=== PATIENT | female | born 2000 | race Caucasian/White ===

== ENCOUNTER 2023-03-10 07:15 | Inpatient (IN) | payer BC, OTHER, SELFPAY ==
[2023-03-10] VITALS (52 sets, daily range): BP systolic 109–148; BP diastolic 56–86; PULSE 74–123; RESP 16–20; TEMP 36.7–36.9; O2SAT 93–100; BMI 40.5
[2023-03-10 08:53] LABS: Basophils Absolute Auto 0.03 K/uL (0.00-0.30); Basophils Percent Auto 0.3 % (0.0-3.0); Eosinophils Percent Auto 2.2 % (0.0-7.0); Hemoglobin* 10.1 gm/dL (12.0-16.0); Immature Granulocytes Abs Auto 0.05 K/uL (0.00-0.30); Immature Granulocytes Pct Auto 0.6 %; Lymphocytes Percent Auto 18.9 % (20-44); Mean Corpuscular HGB Conc 33 gm/dL (32-36); Mean Corpuscular Hemoglobin 27 pg (26-34); Mean Corpuscular Volume 83 fL (80-100); Monocytes Percent Auto 8.2 % (0.0-11.0); Neutrophils Absolute Auto 6.31 K/uL (1.7-7.0); Neutrophils Percent Auto 69.8 % (42.0-72.0); Platelet Count* 279 K/uL (140-440); RDW Coefficient of Variation % 13.1 % (11.5-15.5); Red Blood Count 3.73 m/uL (4.00-5.20); White Blood Count* 9.04 K/uL (4.50-11.00)
[2023-03-10 08:55] LABS: Slide Review Reflex No
[2023-03-10] MEDS: miSOPROStoL 25 MCG/0.25 TABLET PO ×5 (09:22→19:03)
--- NOTE | 2023-03-10 18:02 | P.OBHP_ITS ---
OB - H&P: HPI Labor/Induction History of Present Illness Time Seen by Provider: 18:02 Date Seen: 03/10/23 Chief Complaint: The patient is a 22 year old 1 para 0 at 41+0 weeks gestation by 9 wk US, who presents with with regular contractions. Chief complaint: maternity : 1 Para: 0 Narrative: Deneen Hill is a 22 year old female at 41+0 weeks by 9 wk US who presents with regular contractions. Scheduled for IOL this evening for post- dates, but started kayy overnight, and presented to L&D at 0700 and was admitted in early labor. Membranes intact. Otherwise feeling well. Cervix found to be 1.5/50/-2. Oral cytotec initiated for cervical ripening. Now s/p 4 doses. Contractions more regular, more intense. Breathing through. Nitrous oxide initiated about 30 minutes prior. Patient received majority of care at [facility], transferred care to [facility] at 40 weeks. History of Present Dating criteria: based on 1st trimester US only care: good care Ultrasounds: normal 1st trimester US, normal mid trimester US and other (Growth US at 31 weeks showed EFW 23rd percentile) Narrative: Pre- BMI 30, otherwise uncomplicated. Labs Blood type: O (+) positive Rubella: immune RPR/VDLR: nonreactive GBS status: negative HBsAG: negative Review of Systems Status of ROS: Reports: 10 or more systems reviewed and unremarkable except as noted in History and below Meds Home Medications and Allergies Home Medications Medication Instructions Recorded Confirmed Type ascorbic acid (vitamin C) 250 mg 250 mg PO Q1D 03/10/23 03/10/23 History tablet ferrous sulfate 325 mg (65 mg 325 mg PO Q1D 03/10/23 03/10/23 History iron) tablet (FeroSul) vit no.133-ferrous tab PO DAILY 03/10/23 History fumarate 28 mg-folic acid 800 mcg tablet () Allergies Allergy/AdvReac Type Severity Reaction Status Date / Time amoxicillin [From Augmentin] Allergy Intermediate Hives Verified 03/10/23 07:44 clavulanic acid Allergy Intermediate Hives Verified 03/10/23 07:44 [From Augmentin] Latex, Natural Rubber Allergy Mild Rash Verified 03/10/23 07:44 OB - H&P: Exam Physical Exam: Vital signs: Temp Pulse Resp BP Pulse Ox 98.5 F 80 18 118/64 98 03/10/23 16:11 03/10/23 16:11 03/10/23 16:11 03/10/23 16:11 03/10/23 07:29 Narrative: General appearance: Well-appearing adult female. Alert, oriented and appropriate. Sitting up in hospital bed. Breathing through contractions. HEENT: EOMI, no conjunctival injection or discharge. MMM. Neck: Supple. CV: RRR, no rubs, murmurs or extra heart sounds. Pulm: CTAB, no wheezes, rales or rhonchi. Abdomen: Gravid. MSK: Moving all extremities. Ext: Warm and well-perfused. No LE edema. Skin: No rashes appreciated over exposed skin. Neuro: Grossly normal strength and sensation. No focal deficits. Psych: Normal affect. Detailed Labor and Delivery Exam: Patient Gravid: Yes Dilation (cm): 2 Effacement (%): 50 Cervix position: mid Consistency: soft Contraction frequency (min): 3 Fetus (Single): Station: -2 Amniotic Membrane Status: intact Heart Rate Baseline: 145 Monitor Accelerations: Present Monitor Decelerations: None Care Home Variability: Moderate (6-25) OB - Results Labs Labs: Short CBC 03/10/23 Range/Units 08:34 WBC 9.04 (4.50-11.00) K/uL Hgb 10.1 L (12.0-16.0) gm/dL Hct 31.0 L (33.0-51.0) % Plt Count 279 (140-440) K/uL OB - Problem Based A/P Additional Plan (1) Term : Status: Acute Plan: - Continue oral cytotec for total of 6 doses. Transition to pitocin pending labor progress and ctx pattern - GBS negative - tracing category I - Epidural upon request - Anticipate vaginal delivery
[2023-03-10] MEDS: LACTATED RINGERS 1000 ML 1,000 ML 1200 ML IV (20:03)
[2023-03-10] MEDS: ROPIVACAINE 0.2% 100 ml 100 ML 12 MG EPIDURAL (20:35)
--- NOTE | 2023-03-10 20:43 | PM.ANBPRC ---
[facility] Surgical History (Updated 03/10/23 @ 18:18 by Lacy Gomez MD) History of tonsillectomy and adenoidectomy ?Z90.89 - Acquired absence of other organs (ICD-10) Social History What is your current living situation?: I presently have a place to live Problems where you live: no known problems In the past 12 months, utilities in danger of being shut off: no In the past 12 mos, have been you worried that your food would run out before you had money to buy more?: never true In the past 12 mos, the food you bought just didn't last and you didn't have money to buy more?: never true Smoking Status: Never smoker How often does anyone, including family, friends and others, physically hurt you: never How often does anyone, including family, friends and others, insult or talk down to you: never How often does anyone, including family, friends and others, threaten you with harm: never How often does anyone, including family, friends and others, scream or curse at you: never Meds Home Medications and Allergies Home Medications Medication Instructions Recorded Confirmed Type ascorbic acid (vitamin C) 250 mg 250 mg PO Q1D 03/10/23 03/10/23 History tablet ferrous sulfate 325 mg (65 mg 325 mg PO Q1D 03/10/23 03/10/23 History iron) tablet (FeroSul) vit no.133-ferrous 1 tab PO DAILY 03/10/23 03/10/23 History fumarate 28 mg-folic acid 800 mcg tablet () Allergies Allergy/AdvReac Type Severity Reaction Status Date / Time amoxicillin [From Augmentin] Allergy Intermediate Hives Verified 03/10/23 07:44 clavulanic acid Allergy Intermediate Hives Verified 03/10/23 07:44 [From Augmentin] Latex, Natural Rubber Allergy Mild Rash Verified 03/10/23 07:44 Results Labs Labs: Laboratory Results - last 24 hr 03/10/23 03/10/23 08:16 08:34 WBC 9.04 RBC 3.73 L Hgb 10.1 L Hct 31.0 L MCV 83 MCH 27 MCHC 33 RDW Coeff of Christine 13.1 Plt Count 279 Neut % (Auto) 69.8 Lymph % (Auto) 18.9 L Porter % (Auto) 8.2 Eos % (Auto) 2.2 Baso % (Auto) 0.3 Neut # (Auto) 6.31 Lymph # (Auto) 1.70 Porter # (Auto) 0.70 Eos # (Auto) 0.20 Baso # (Auto) 0.03 Abs Immat Gran (auto) 0.05 Imm/Tot Granulo (auto) 0.6 Blood Type O Positive Antibody Screen NEGATIVE Vital Signs Vital Signs: Last Vital Signs Temp 98.5 F 03/10/23 19:29 Pulse 96 03/10/23 20:42 Resp 20 03/10/23 19:29 BP 147/65 H 03/10/23 20:42 Pulse Ox 100 03/10/23 20:38 Weight: 113.942 kg Height: 167.64 cm Anesthesia Procedures Epidural Insertion Patient Location: OB Start Time: 20:00 Stop Time: 20:55 Start Date: 03/10/23 Stop Date: 03/10/23 Reason for Block: procedure for pain Patient Position: sitting Performed By: Charles Mckeon Preanesthetic Checklist: IV checked, risks and benefits discussed, surgical consent, monitors and equipment checked, pre-op evaluation, timeout performed and anesthesia consent Prep: chlorhexidine gluconate Monitoring: blood pressure monitoring, continuous pulse oximetry and heart rate Approach: midline Vertebral Space: lumbar (1-5) Epidural Technique: HALIE saline Needle Type: Tuohy needle Injection Technique: continuous catheter Needle gauge: 17 Needle Length (cm): 10 cm Needle Insertion Depth (cm): 8 Catheter Gauge: 19 Catheter Type: multi-orifice Catheter at skin depth (cm): 14 Test Dose Result: negative and lidocaine 1.5% with epinephrine 1 to 200,000
[2023-03-10] MEDS: LACTATED RINGERS 1000 ML 1,000 ML 125 ML IV (21:05)
[2023-03-11] VITALS (45 sets, daily range): BP systolic 105–153; BP diastolic 55–96; PULSE 76–137; RESP 16–18; TEMP 36.7–37.2; O2SAT 100
[2023-03-11] MEDS: ROPIVACAINE 0.2% 100 ml 100 ML 12 MG EPIDURAL ×2 (03:18→09:49)
[2023-03-11] MEDS: LACTATED RINGERS 1000 ML 1,000 ML 125 ML IV (05:20)
--- NOTE | 2023-03-11 07:05 | P.OBPN_ITS ---
Subjective Time Seen by Provider: 07:05 Date Seen: 03/11/23 Narrative: Called in to evaluate patient, cervical exam posterior lip with bulging bag. Overnight, patient continued to become more uncomfortable, received a total of 5 doses of cytotec. Epidural placed 1999. /-2 after epidural. 1 at 0030. FHT reassuring. This AM, feeling pressure and breathing through this with contractions. Otherwise comfortable with epidural and got some sleep. Objective Vital Signs: Last Vital Signs Temp 98.7 F 03/11/23 03:32 Pulse 113 H 03/11/23 07:02 Resp 16 03/11/23 03:32 BP 139/79 03/11/23 07:02 Pulse Ox 100 03/10/23 21:48 Pelvic Exam Dilation (cm): 9 Effacement (%): 100 Station: +1 Comments: Anterior lip after AROM. Contractions Contraction Frequency: Q4-5 Contraction pattern: Regular Assessment Assessment: active labor Station: +1 Amniotic Membrane Status: AROM (Clear) Status: Category l Heart Rate Baseline: 150 Penitentiary Variability: Moderate (6-25) Monitor Accelerations: Present Monitor Decelerations: None Plan Plan: - Recheck as patient feels more pressure - Initiate pushing when complete - Anticipate vaginal delivery
[2023-03-11] MEDS: CEFAZOLIN 2 GM in 0.9 % SODIUM CHLORIDE Mini-bag 100 ML IVPB (09:49)
[2023-03-11] MEDS: LIDOCAINE 1 % PF 30 ML INJECTION (09:50)
--- NOTE | 2023-03-11 10:16 | W.PM.OBVAGDE ---
OB Procedure Vag Delivery Mother Details Mother Details: The patient is a 22 year-old, 1, Para 0, admitted on 03/10/23 at 41+1 weeks gestation. : 1 Para: 0 Weeks Gestation: 41.1 Admission Date: 03/10/23 Additional Details Amniotic Membrane Status: AROM Amniotic Membrane Rupture Date: 03/11/23 Amniotic Membrane Rupture Time: 06:52 Amniotic Membrane Fluid Description: Clear Analgesia/Anesthesia Type: Epidural Waterbirth: No Pitcoin: No Intrapartal Events: Labor Induction Induction Method: per misoprostol protocol Delivery augmentation: rupture of membranes Labor Onset: 00:19 Complete: 08:33 Pushin:44 Heart: heart tones during second stage were category 1 Delivery Details Delivery Date: 03/11/23 Delivery Time: 08:57 Route of delivery: Gender: Female Viability: Alive; Heart Rate Present Position at Delivery: OA Delivery Details: Delivered over intact perineum via spontaneous vaginal delivery. Infant was placed on maternal abdomen.? Cord was clamped and cut after a 30-60 second delay. Nose and mouth were bulb suctioned.? Infant weight 3780g Active management of the third stage with IV pitocin. Rectal cytotec also given after several gushes with fundal massage. Fundus subsequently firm, bleeding minimal. Dr Mtz was called in to evaluate 3rd degree perineal and deep vaginal laceration. Repair was performed, please see her documentation. 1 Minute Interval Total Score: 8 5 Minute Interval Total Score: 9 Additional Details Shoulder Dystocia: No Placenta Delivery Time: 09:02 Placental Delivery Description: Spontaneous Delivery repair: Vicryl Procedure Done: Global Blood Loss: 1,000 Laceration: Perineal - 3rd Degree (and multiple deep vaginal lacerations, see Dr. Mtz's repair note) Blood Loss Measurement Type: QBL Bakri Used: No Sponge/Need Count Correct: Yes Cord Vessel Description: 3 Vessels, Around Body and Delivered through Event Summary Status: Mother and were stable after delivery. Disposition: floor
[2023-03-11] MEDS: ACETAMINOPHEN 500 MG TABLET 1000 MG PO ×3 (10:18→22:05)
[2023-03-11] MEDS: IBUPROFEN 600 MG TABLET PO ×2 (13:15→19:44)
[2023-03-11] MEDS: miSOPROStoL 800 MCG/4 TABLET PR (16:58)
[2023-03-12 00:15] VITALS: BP 114/71; PULSE 91; RESP 16; TEMP 36.5; O2SAT 99
[2023-03-12] MEDS: IBUPROFEN 600 MG TABLET PO ×4 (02:28→22:11)
[2023-03-12 03:58] VITALS: BP 123/79; PULSE 85; RESP 18; TEMP 36.6; O2SAT 99
[2023-03-12] MEDS: ACETAMINOPHEN 500 MG TABLET 1000 MG PO ×3 (04:02→16:23)
[2023-03-12 07:21] LABS: Hemoglobin* 7.2 gm/dL (12.0-16.0)
[2023-03-12 07:30] VITALS: BP 127/81; PULSE 85; RESP 16; TEMP 36.3; O2SAT 98
--- NOTE | 2023-03-12 07:35 | PM.OBPNVD1 ---
OB - PN:Subj Subjective Time Seen by Provider: 07:35 Date Seen: 03/12/23 Narrative: Overall feeling well. Brief syncope right after she got up after delivery, but no lightheadedness or dizziness since then. Bottom is sore, but pain controlled. Moving around her room and getting to the bathroom without difficulty. She has urinated and passed stool. Minimal cramping. Bleeding is slowing. is going well. Normal mood. OB - PN: Obj Exam Physical Exam: Vital signs: Temp Pulse Resp BP Pulse Ox O2 Del Method 97.4 F L 85 16 127/81 99 Room Air 03/12/23 07:30 03/12/23 07:30 03/12/23 07:30 03/12/23 07:30 03/12/23 07:30 03/12/23 07:30 Narrative: General appearance: Well-appearing adult female. Alert, oriented and appropriate. Sitting up in hospital bed. HEENT: EOMI, no conjunctival injection or discharge. MMM. Neck: Supple. CV: RRR, no rubs, murmurs or extra heart sounds. Pulm: CTAB, no wheezes, rales or rhonchi. Abdomen: Soft, non-tender. Fundus palpated 1 cm below the umbilicus. MSK: Moving all extremities. Ext: Warm and well-perfused. No LE edema. Skin: Appears pale. No rashes appreciated over exposed skin. Neuro: Grossly normal strength and sensation. No focal deficits. Psych: Normal affect. OB - PN: Obj Data Labs Labs: Laboratory Results - last 24 hr 03/12/23 06:50 Hgb 7.2 L* OB - PN: A/P Delivery Assessment and Plan (1) Term : Status: Acute Assessment and Plan: - Normal post- cares - Stool softener for prevention of constipation with third degree perineal laceration - Anticipate discharge 03/13/23 (2) anemia: Problem details: PP hgb 7.1. Patient asymptomatic. Status: Acute Assessment and Plan: - IV iron infusion today, venofer, pending insurance coverage
[2023-03-12] MEDS: DOCUSATE SODIUM 100 MG CAPSULE PO (08:39)
--- NOTE | 2023-03-12 09:13 | P.OBCN_ITS ---
OB - CN: HPI Date of Consult Time Seen by Provider: 09:00 Date Seen: 03/11/23 Patient: Lorenza Patient Consult date: 03/12/23 Requesting Physician: Lacy Gomez MD Primary Care Provider: Lacy Gomez MD Consult Narrative Reason for consult: vaginal repair Narrative: The patient is a 22 year old G 1 P 1 at 41 weeks gestation that was admitted to the Center on 03/10/23 for IOL. Please refer to Dr. Gomez's notes for complete details. I was called in to evaluate and repair possible 3rd degree perineal laceration. History History 1 Elective abortions Para 1 Spontaneous abortions Hx # Term Pregnancies Ectopic pregnancies Hx # Pregnancies Multiple births Number of Living Children 0 Labs Blood type: O (+) positive Rubella: immune RPR/VDLR: nonreactive GBS status: negative HBsAG: negative OB Labs: Lab Assessment Start: 03/10/23 08:56 Freq: ONCE Status: Complete Protocol: PC.OBGBS Activity Type Activity Date Activity User E-sign Co-sign Detail Recorded Client Recorded Date Recorded By Document 03/10/23 09:36 [facility] [id number] 03/10/23 09:44 [facility] 03/10/23 09:36 Lab Assessment GBS Status negative GBS Additional Criteria None No Treatment Needed OK Are Labs Available Yes Maternal Blood Type O Maternal RH Factor Positive Evaluate Maternal Rubella Immune Status Immune Hepatitis B Surface Antigen Negative Maternal HIV Status Negative Maternal Syphillis (RPR) Status Negative PFSH PFS Surgical History (Updated 03/10/23 @ 18:18 by Lacy Gomez MD) History of tonsillectomy and adenoidectomy ?Z90.89 - Acquired absence of other organs (ICD-10) Social History What is your current living situation?: I presently have a place to live Problems where you live: no known problems In the past 12 months, utilities in danger of being shut off: no In the past 12 mos, have been you worried that your food would run out before you had money to buy more?: never true In the past 12 mos, the food you bought just didn't last and you didn't have money to buy more?: never true Smoking Status: Never smoker How often does anyone, including family, friends and others, physically hurt you : never How often does anyone, including family, friends and others, insult or talk down to you: never How often does anyone, including family, friends and others, threaten you with harm: never How often does anyone, including family, friends and others, scream or curse at you: never Meds Home Medications and Allergies Home Medications Medication Instructions Recorded Confirmed Type ascorbic acid (vitamin C) 250 mg 250 mg PO Q1D 03/10/23 03/10/23 History tablet ferrous sulfate 325 mg (65 mg 325 mg PO Q1D 03/10/23 03/10/23 History iron) tablet (FeroSul) vit no.133-ferrous 1 tab PO DAILY 03/10/23 03/10/23 History fumarate 28 mg-folic acid 800 mcg tablet () Allergies Allergy/AdvReac Type Severity Reaction Status Date / Time amoxicillin [From Augmentin] Allergy Intermediate Hives Verified 03/10/23 07:44 clavulanic acid Allergy Intermediate Hives Verified 03/10/23 07:44 [From Augmentin] Latex, Natural Rubber Allergy Mild Rash Verified 03/10/23 07:44 OB - H&P: Exam Physical Exam: Vital signs: Temp Pulse Resp BP Pulse Ox O2 Del Method 97.4 F L 85 16 127/81 98 Room Air 03/12/23 07:30 03/12/23 07:30 03/12/23 07:30 03/12/23 07:30 03/12/23 07:30 03/12/23 07:30 Narrative: I went into the room and patient had already delivered, and placenta had already delivered. Rectal Cytotec had been given due to large gush of blood seen after placenta delivered. Upon my arrival patient was stable and I asked permission to evaluate perineal laceration. This was identified to be a 3a perineal laceration and upon further investigation there were also bilateral deep vaginal sulci lacerations that were actively bleeding. Patient had epidural in place, needed to re bolus and local lidocaine was also infiltrated. A briskey retractor was placed in the anterior vagina to help identify the left vaginal sulci apex, this was identified and utilizing Vicryl 3-0 in a continuous interlocking manner laceration was repaired. Then proceeded to repair the right vaginal sulci laceration, this was repaired in a similar manner, hemostasis secured. The superficial torn fibers of the external anal sphincter identified and utilizing Vicryl 3-0 in an interrupted fashion 2 sutures were placed and the sphincter muscle reapproximated and supported. Good sphincter tone noted. Proceeded to repair the rest of the laceration in the usual manner, utilizing Vicryl 3-0 in a continuous manner. Hemostasis secured. Rectal exam completed and again good sphincter tone noted, rectal mucosa intact and free of defects or suture. Patient tolerated procedure well. 1 dose of Ancef 2g given during repair. OB - Results Labs Labs: Short CBC 03/12/23 Range/Units 06:50 Hgb 7.2 L* (12.0-16.0) gm/dL OB - CN: A/P Assessment and Plan (1) Term : Status: Acute (2) anemia: Problem details: PP hgb 7.1. Patient asymptomatic. Status: Acute Plan Continue routine cares, recommend to continue stool softeners. Will remain aware if there are any additional concerns. Will sign out of care for the moment.
[2023-03-12 16:24] VITALS: BP 113/72; PULSE 93; RESP 16; O2SAT 97
[2023-03-12 20:12] VITALS: BP 130/84; PULSE 109; RESP 16; TEMP 36.7; O2SAT 99
[2023-03-13] VITALS (7 sets, daily range): BP systolic 102–131; BP diastolic 66–87; PULSE 82–99; RESP 16; TEMP 36.7–36.9; O2SAT 98–100
[2023-03-13] MEDS: ACETAMINOPHEN 500 MG TABLET 1000 MG PO (00:36)
[2023-03-13] MEDS: IBUPROFEN 600 MG TABLET PO (06:12)
[2023-03-13 07:45] LABS: Hemoglobin* 6.6 gm/dL (12.0-16.0)
[2023-03-13] MEDS: DOCUSATE SODIUM 100 MG CAPSULE PO (07:56)
[2023-03-13] MEDS: 0.9 % SODIUM CHLORIDE 250 ml IV (09:55)
--- NOTE | 2023-03-13 10:00 | P.DS_ITS ---
DS: Providers Provider Time Seen by Provider: 10:00 Date Seen: 03/13/23 Date of admission: 03/10/23 07:20 Primary care physician: Lacy Gomez MD Admitting Clinician: Sandra Florez MD Attending Physician on discharge: Lacy Gmoez MD Date of Discharge: 03/13/23 DS: Diagnosis Discharge Diagnosis (1) Term : Status: Acute (2) anemia: Status: Acute Problem details: PP hgb 7.1. Patient asymptomatic. Exam Narrative: Exam Narrative: General appearance: Well-appearing adult female. Alert, oriented and appropriate. Sitting up in hospital bed. HEENT: EOMI, no conjunctival injection or discharge. MMM. Neck: Supple. CV: RRR, no rubs, murmurs or extra heart sounds. Pulm: CTAB, no wheezes, rales or rhonchi. Abdomen: Soft, non-tender. Fundus palpated 1 cm below the umbilicus. MSK: Moving all extremities. Ext: Warm and well-perfused. Trace LE edema. Skin: No rashes appreciated over exposed skin. Neuro: Grossly normal strength and sensation. No focal deficits. Psych: Normal affect. Const: Vital Signs, click to edit/add: Vital Signs - 24 hr 03/12/23 16:24 03/12/23 20:12 03/13/23 00:38 Temperature 98.1 F 98.1 F Pulse Rate Pulse Rate [Blood Pressure Cuff] 93 109 H 92 Respiratory Rate 16 16 16 Blood Pressure Blood Pressure [Le ft Arm] 113/72 130/84 131/87 Pulse Oximetry 97 99 100 Oxygen Delivery Me thod Room Air Room Air Room Air 03/13/23 07:50 03/13/23 09:46 Temperature 98.3 F 98.1 F Pulse Rate 99 Pulse Rate [Blood Pressure Cuff] 87 Respiratory Rate 16 16 Blood Pressure 121/78 Blood Pressure [Le ft Arm] 116/71 Pulse Oximetry 99 Oxygen Delivery Me thod Room Air OB - DS: Summary Hospital Course Hospital Course: The patient is a 22 year old G 1 P 0 at 41.0 weeks gestation that was admitted to the Center on 03/10/23 for regular contractions. Presented on the morning of her scheduled induction for post-dates. She had an uncomplicated vaginal delivery. Third degree perineal and complex vaginal laceration was repaired by OB product development consultant, Dr. Mancera. She delivered a viable female . She is breast feeding. the patient has done well. Was found to be anemic to 6.6 on day of discharge and received 1 unit of PRBC, asymptomatic. Peripartum Data delivery method: Vaginal Laceration description: Perineal - 3rd Degree (And complex vaginal repaired by Dr. Mancera) Episiotomy description: None complications: transfusion (For anemia to 6.6, asymptomatic) [place] Gender: Female Infant Discharge Plan: Home Status at Discharge Functional status at discharge: independent ambulation Overall status at discharge: patient is progressing back to baseline Time Spent with Patient Time attestation: Total time spent providing and/or coordinating discharge services: Time spent: Less than 30 minutes Discharge Plan Discharge Disposition: Home, Self-Care Date of Admission: 03/10/23 07:20 Attending Provider on Discharge: Lacy Gomez Primary Care Provider: Lacy Gomez I Condition: Stable Anticipated Discharge Date/Time: 03/13/23 09:57 Discharge Medications: New acetaminophen 500 mg Tablet 1,000 mg PO Q6H PRNQty: 30 0RF docusate sodium 100 mg Capsule 100 mg PO DAILY Qty: 30 0RF ibuprofen 600 mg Tablet 600 mg PO Q6H PRNQty: 30 0RF Continued ascorbic acid (vitamin C) 250 mg tablet 250 mg PO Q1D ferrous sulfate [FeroSul] 325 mg (65 mg iron) tablet 325 mg PO Q1D 28-800 mg-mcg tablet 1 tab PO DAILY Discharge Orders: Discharge Order (Routine); Ordered 03/13/23 Ordered By: Lacy Gomez Patient Education: OB Vaginal/Breast Feeding Activity Level: Activity as Tolerated Discharge Diet: Regular Follow Up Appointments: Lacy Gomez MD [Primary Care Provider] - (6 wk post- visit) Forms: [employer] Info Instructions
== END 2023-03-13 13:45 | disposition home or self-care (01) | DRG 560 ==
LOC: OB OUT 07:16 → OB 07:18
PROVIDERS: Admitting Provider Family Medicine; PCP Family Medicine; Visit Provider Family Medicine
DX: O48.0 Post-term pregnancy (principal); O70.21 Third degree perineal laceration during delivery, IIIa; O90.81 Anemia of the puerperium; D62 Acute posthemorrhagic anemia; R55 Syncope and collapse; Z3A.41 41 weeks gestation of pregnancy; Z37.0 Single live birth
CPT/HCPCS: 01967; 36415; 36430; 59200; 85018; 85025; 86850; 86900; 86901; 86922; 99213; A9270; J0690; J2001; J2371; J2795; J7050; J7120; P9016; S0020

== ENCOUNTER 2024-03-08 18:52 | Outpatient (CLI) | payer BC, OTHER, SELFPAY ==
[2024-03-08] VITALS (8 sets, daily range): BP systolic 115–120; BP diastolic 61–67; PULSE 92–102; O2SAT 98–100
[2024-03-08 19:47] LABS: Appearance Urine Clear (Clear); Bilirubin Urine Negative (Negative); Blood Urine Negative (Negative); Color Urine Yellow (Yellow); Glucose Urine Negative (Negative); Ketones Urine Negative (Negative); Leukocyte Esterase Urine Negative (Negative); Nitrite Urine Negative (Negative); Protein Urine Negative (Negative); Urobilinogen Urine 0.2 (0.2-1.0)
[2024-03-08 19:56] LABS: Amnisure Rom* Negative
[2024-03-08 20:00] LABS: Clue Cells <20% Clue Cells Seen (None Seen); Trichomonas No Trichomonas Seen (None Seen); Yeast No Yeast Seen (None Seen)
--- NOTE | 2024-03-08 20:12 | PC.OBNST ---
NST Note NST Note Start: 03/08/24 19:18 Freq: ONCE Status: Active Protocol: Document 03/08/24 20:11 KENDELL (Rec: 03/08/24 20:12 KENDELL [id number]) NST Note 2 Para (# of births) 1 EDC 04/08/24 Gestational Age In Weeks & Days 35 Weeks & 4 Days Patient Presented with Complaint(s) of Leaking fluid Reactive Yes Appropriate for Gestational Age Yes SHELBY Woodward RN Date 03/08/24 Reactive Yes Appropriate for Gestational Age Yes SHELBY Kelly RNC Date 03/08/24 OB NST charge Yes Complete NST Note via Write Note Yes The provider's electronic signature indicates the NST is reactive/appropriate for gestational age. *Note to provider: If an addendum is required, open the patient's chart and click on the note under the Nurse/Allied Health tab.
--- NOTE | 2024-03-09 01:19 | W.PM.NSTNOTE ---
NST Note NST Note NST Note: NST Note NST Note Start: 03/08/24 19:18 Freq: ONCE Status: Discharge Protocol: Document 03/08/24 20:11 KENDELL (Rec: 03/08/24 20:12 KENDELL [id number]) NST Note 2 Para (# of births) 1 EDC 04/08/24 Gestational Age In Weeks & Days 35 Weeks & 4 Days Patient Presented with Complaint(s) of Leaking fluid Reactive Yes Appropriate for Gestational Age Yes SHELBY Woodward RN Date 03/08/24 Reactive Yes Appropriate for Gestational Age Yes SHELBY Kelly RNC Date 03/08/24 OB NST charge Yes Complete NST Note via Write Note Yes Addendum: Reviewed NST. Reactive. Baseline 130bpm. Moderate variability. + accells, - decells
== END 2024-03-08 20:20 | disposition home or self-care (01) ==
LOC: OB OUT 18:53 → OB 18:54
PROVIDERS: PCP Family Medicine; Visit Provider Student in an Organized Health Care Education/Training Program
DX: O47.03 False labor before 37 completed weeks of gestation, third trimester (principal); Z3A.35 35 weeks gestation of pregnancy
CPT/HCPCS: 59025; 81003; 84112; 87210; G0463

== ENCOUNTER 2024-04-06 18:22 | Inpatient (IN) | payer BC, OTHER, MEDICAID, SELFPAY ==
[2024-04-06 17:43] VITALS: BP 128/76; PULSE 86
[2024-04-06 17:44] VITALS: PULSE 88; O2SAT 99
[2024-04-06 17:45] VITALS: RESP 18; TEMP 37.1
[2024-04-06] MEDS: miSOPROStoL 25 MCG/0.25 TABLET PO ×3 (19:03→22:20)
[2024-04-06 19:05] LABS: Basophils Absolute Auto 0.02 K/uL (0.00-0.30); Basophils Percent Auto 0.2 % (0.0-3.0); Eosinophils Absolute Auto 0.15 K/uL (0.00-0.50); Eosinophils Percent Auto 1.6 % (0.0-7.0); Hematocrit 32.2 % (33.0-51.0); Hemoglobin* 9.9 gm/dL (12.0-16.0); Immature Granulocytes Abs Auto 0.03 K/uL (0.00-0.30); Immature Granulocytes Pct Auto 0.3 %; Lymphocytes Absolute Auto 2.21 K/uL (0.90-2.90); Lymphocytes Percent Auto 23.7 % (20-44); Mean Corpuscular HGB Conc 31 gm/dL (32-36); Mean Corpuscular Hemoglobin 24 pg (26-34); Mean Corpuscular Volume 79 fL (80-100); Monocytes Percent Auto 6.5 % (0.0-11.0); Neutrophils Absolute Auto 6.31 K/uL (1.7-7.0); Neutrophils Percent Auto 67.7 % (42.0-72.0); Platelet Count* 286 K/uL (140-440); RDW Coefficient of Variation % 17.9 % (11.5-15.5); White Blood Count* 9.33 K/uL (4.50-11.00)
[2024-04-06 19:07] VITALS: BMI 42.1
[2024-04-06 19:09] LABS: Slide Review Reflex No
[2024-04-06 19:17] VITALS: BP 126/68; PULSE 80
[2024-04-06 20:38] VITALS: BP 131/72; PULSE 88; RESP 16; TEMP 37.3; O2SAT 98
--- NOTE | 2024-04-06 20:41 | P.OBHP_ITS ---
OB - H&P: HPI Labor/Induction History of Present Illness Time Seen by Provider: 20:41 Date Seen: 04/06/24 Chief Complaint: The patient is a 23 year old 2 para 1 at 39+5 weeks gestation by 10 week US, who presents for elective IOL. Chief complaint: IOL : 2 Para: 1 Indications for induction: other (Elective) Narrative: Deneen Hill is a 23 year old female 2 para 1 at 39+5 weeks gestation by 10 week US, who presents for elective IOL. complicated by maternal obesity with pre- BMI of 39 and short interpregnancy interval. Low risk NIPT. EFW 9th percentile on 20 week survey. Referred to perinatology where EFW was 19th percentile at 21 weeks, otherwise normal anatomy. Measuring a ppropriately in the third trimester. Mild anemia on oral iron replacement. Hgb 10.1 on 12/23/23. Did require blood transfusion after her last delivery. Feeling well upon presentation. No contractions. Normal movement. History of Present Dating criteria: based on 1st trimester US only care: good care Ultrasounds: normal 1st trimester US Labs Blood type: O (+) positive Rubella: immune RPR/VDLR: nonreactive GBS status: negative HBsAG: negative Review of Systems Status of ROS: Reports: 10 or more systems reviewed and unremarkable except as noted in History and below Meds Home Medications and Allergies Home Medications ?Medication ?Instructions ?Recorded ?Confirmed ?Type ascorbic acid (vitamin C) 250 mg 250 mg PO Q1D 03/10/23 04/06/24 History tablet ferrous sulfate 325 mg (65 mg 325 mg PO Q1D 03/10/23 04/06/24 History iron) tablet (FeroSul) vit no.133-ferrous 1 tab PO DAILY 03/10/23 04/06/24 History fumarate 28 mg-folic acid 800 mcg tablet () Allergies Allergy/AdvReac Type Severity Reaction Status Date / Time amoxicillin [From Augmentin] Allergy Intermediate Hives Verified 04/06/24 19:08 clavulanic acid Allergy Intermediate Hives Verified 04/06/24 19:08 [From Augmentin] Latex, Natural Rubber Allergy Mild Rash Verified 04/06/24 19:08 OB - H&P: Exam Physical Exam: Vital signs: Temp Pulse Resp BP Pulse Ox 98.7 F 88 18 131/72 99 04/06/24 17:45 04/06/24 20:38 04/06/24 17:45 04/06/24 20:38 04/06/24 17:44 Narrative: General appearance: Well-appearing adult female. Alert, oriented and appropriate. Sitting up in hospital bed. HEENT: EOMI, no conjunctival injection or discharge. MMM. Neck: Supple. CV: RRR, no rubs, murmurs or extra heart sounds. Pulm: CTAB, no wheezes, rales or rhonchi. Abdomen: Gravid. MSK: Moving all extremities. Ext: Warm and well-perfused. No LE edema. Skin: No rashes appreciated over exposed skin. Neuro: Grossly normal strength and sensation. No focal deficits. Psych: Normal affect. Detailed Labor and Delivery Exam: Dilation (cm): 1 Effacement (%): 50 Tachysystole: No Contraction intensity: Mild Comments: Ctx q1-4 minutes Fetus (Single): Station: -3 Amniotic Membrane Status: intact Heart Rate Baseline: 130 Monitor Accelerations: Present Monitor Decelerations: None Charge Account Identification Clerk Variability: Moderate (6-25) OB - Results Labs Labs: Short CBC 04/06/24 Range/Units 19:02 WBC 9.33 (4.50-11.00) K/uL Hgb 9.9 L (12.0-16.0) gm/dL Hct 32.2 L (33.0-51.0) % Plt Count 286 (140-440) K/uL OB - Problem Based A/P Additional Plan (1) Term : Problem details: Elective IOL at 39+5 weeks. Status: Acute Plan: - Oral cytotec per protocol - Continuous monitoring - GBS negative - Epidural upon request - monitoring category 1 - Anticipate vaginal delivery (2) Anemia affecting : Problem details: Admission hgb 9.9 Status: Acute
[2024-04-06 22:21] VITALS: BP 128/60; PULSE 79; PULSE 82; RESP 16; TEMP 36.6; O2SAT 99
[2024-04-07] VITALS (41 sets, daily range): BP systolic 109–147; BP diastolic 56–85; PULSE 75–179; RESP 12–16; TEMP 36.3–36.9; O2SAT 88–100
[2024-04-07] MEDS: miSOPROStoL 25 MCG/0.25 TABLET PO ×2 (00:24→02:52)
[2024-04-07] MEDS: LACTATED RINGERS 1000 ML 1,000 ML 125 ML IV (08:15)
[2024-04-07] MEDS: OXYTOCIN 30 unit/500 ML in NS 30 UNIT/500 ML BAG IVPB (08:16)
[2024-04-07] MEDS: ROPIVACAINE 0.2% 100 ml 100 ML 12 MG EPIDURAL (09:06)
[2024-04-07] MEDS: LIDOCAINE 2% (PF) 5 ML VIAL EPIDURAL (09:06)
--- NOTE | 2024-04-07 09:46 | P.ANBPRC_ITS ---
[facility] Surgical History (Updated 03/10/23 @ 18:18 by Lacy Gomez MD) History of tonsillectomy and adenoidectomy ?Z90.89 - Acquired absence of other organs (ICD-10) Social History What is your current living situation?: I presently have a place to live Problems where you live: no known problems In the past 12 months, utilities in danger of being shut off: no In past 12 months, lack of transportation kept you from medical appts, meetings, work, or getting things needed for daily living: no In the past 12 mos, have been you worried that your food would run out before you had money to buy more?: never true In the past 12 mos, the food you bought just didn't last and you didn't have money to buy more?: never true Smoking Status: Never smoker How often does anyone, including family, friends and others, physically hurt you : never How often does anyone, including family, friends and others, insult or talk down to you: never How often does anyone, including family, friends and others, threaten you with harm: never How often does anyone, including family, friends and others, scream or curse at you: never Meds Home Medications and Allergies Home Medications ?Medication ?Instructions ?Recorded ?Confirmed ?Type ascorbic acid (vitamin C) 250 mg 250 mg PO Q1D 03/10/23 04/06/24 History tablet ferrous sulfate 325 mg (65 mg 325 mg PO Q1D 03/10/23 04/06/24 History iron) tablet (FeroSul) vit no.133-ferrous 1 tab PO DAILY 03/10/23 04/06/24 History fumarate 28 mg-folic acid 800 mcg tablet () Allergies Allergy/AdvReac Type Severity Reaction Status Date / Time amoxicillin [From Augmentin] Allergy Intermediate Hives Verified 04/06/24 19:08 clavulanic acid Allergy Intermediate Hives Verified 04/06/24 19:08 [From Augmentin] Latex, Natural Rubber Allergy Mild Rash Verified 04/06/24 19:08 Results Labs Labs: Laboratory Results - last 24 hr 04/06/24 19:02 WBC 9.33 RBC 4.10 Hgb 9.9 L Hct 32.2 L MCV 79 L MCH 24 L MCHC 31 L RDW Coeff of Christine 17.9 H Plt Count 286 Neut % (Auto) 67.7 Lymph % (Auto) 23.7 [place] % (Auto) 6.5 Eos % (Auto) 1.6 Baso % (Auto) 0.2 Neut # (Auto) 6.31 Lymph # (Auto) 2.21 [place] # (Auto) 0.60 Eos # (Auto) 0.15 Baso # (Auto) 0.02 Abs Immat Gran (auto) 0.03 Imm/Tot Granulo (auto) 0.3 Blood Type O Positive Antibody Screen NEGATIVE Vital Signs Vital Signs: Last Vital Signs Temp 98.2 F 04/07/24 09:14 Pulse 109 H 04/07/24 09:45 Resp 12 04/07/24 04:48 BP 117/58 L 04/07/24 09:45 Pulse Ox 99 04/07/24 09:26 Weight: 118.388 kg Height: 167.64 cm Anesthesia Procedures Epidural Insertion Patient Location: OB Start Time: 08:06 Stop Time: 09:06 Start Date: 04/07/24 Stop Date: 04/07/24 Reason for Block: procedure for pain Patient Position: sitting Performed By: Kay Vargas Preanesthetic Checklist: IV checked, risks and benefits discussed, monitors and equipment checked, pre-op evaluation, timeout performed and anesthesia consent Prep: chlorhexidine gluconate Monitoring: blood pressure monitoring, continuous pulse oximetry and heart rate Approach: midline Vertebral Space: lumbar (1-5) Epidural Technique: HALIE saline Needle Type: Tuohy needle Injection Technique: continuous catheter (continuous catheter) Needle gauge: 17 Needle Length (cm): 10 cm Needle Insertion Depth (cm): 9 Catheter Gauge: 19 Catheter Type: multi-orifice Catheter at skin depth (cm): 15 Test Dose Result: negative and lidocaine 1.5% with epinephrine 1 to 200,000
--- NOTE | 2024-04-07 10:07 | PM.OBPNL ---
Subjective Time Seen by Provider: 10:07 Date Seen: 04/07/24 Narrative: Received 5 doses of cytotec overnight. SROM at 02:34 for clear fluid. Cxt more painful and intense. Pitocin started 0816. Requested epidural for pain management. Checked by RN and found to be anterior lip/100%/+1 at 0939. Coping well. Pain relief with epidural placement, but continues to experience intense pressure with contractions. Objective Vital Signs: Last Vital Signs Temp 98.2 F 04/07/24 09:14 Pulse 109 H 04/07/24 09:59 Resp 12 04/07/24 04:48 BP 116/77 04/07/24 09:59 Pulse Ox 99 04/07/24 09:26 Pelvic Exam Dilation (cm): 9 Station: +1 Comments: RN exam Contractions Contraction Frequency: q 3 mins Contraction pattern: Regular Contraction intensity: Strong/Firm Pitocin Rate (mU/min): 3 Assessment Assessment: active labor Station: +1 Amniotic Membrane Status: SROM Status: Category ll Heart Rate Baseline: 135 Real Estate Transaction Manager Variability: Moderate (6-25) Monitor Accelerations: Present Monitor Decelerations: Variable Tracing Comments: Intermittent variable decelerations with contractions Plan Plan: - Continue current management - Anticipate vaginal delivery
--- NOTE | 2024-04-07 11:11 | W.PM.OBVAGDE ---
OB Procedure Vag Delivery Mother Details Mother Details: The patient is a 23 year-old, 2, Para 1, admitted on 04/06/24 at 39+5 Days gestation for elective IOL. Received 5 doses of oral cytotec. SROM for clear fluid on 04/07 at 0234. Contractions became more frequent and intense. Pitocin initiated for augmentation at 0815. Patient requested epidural for pain control. Placed 0903 with good effect. Patient felt intense pressure. Cervix found to be complete at 1017. Pushed over 3 contractions. Delivery of a liveborn, vigorous female infant occurred over intact perineum at 1027. Infant placed directly on maternal chest. Cord was cut an clamped after 1 minute delay. Placenta delivered spontaneously at 1030. There were several large gushes of blood, resolved with fundal massage, IV pitocin, and rectal cytotec. Fundus palpated firm. Second degree perineal laceration was repaired in the usual fashion with 3-0 vicryl suture. EBL 800 cc. Placenta 3 vessel, intact. Mother and infant resting comfortably. : 2 Para: 1 Weeks Gestation: 39.6 Admission Date: 04/06/24 Additional Details Amniotic Membrane Status: SROM Amniotic Membrane Rupture Date: 04/07/24 Amniotic Membrane Rupture Time: 02:34 Amniotic Membrane Fluid Description: Clear Analgesia/Anesthesia Type: Epidural Waterbirth: No Pitcoin: Yes Intrapartal Events: Labor Induction Induction Method: per misoprostol protocol Delivery augmentation: pitocin Labor Onset: 06:00 Complete: 10:17 Pushin:19 Heart: heart tones during second stage were category II. Intermittent variable decelerations with pushing. Delivery Details Delivery Date: 04/07/24 Delivery Time: 10:27 Route of delivery: Infant Gender: Female Infant Viability: Alive; Heart Rate Present Position at Delivery: OA Delivery Details: Delivered over intact perineum via spontaneous vaginal delivery. Infant was placed on maternal abdomen.? Cord was clamped and cut after a 30-60 second delay. Nose and mouth were bulb suctioned.? weight pending. 1 Minute Interval Total Score: 8 5 Minute Interval Total Score: 9 Additional Details Shoulder Dystocia: No Placenta Delivery Time: 10:30 Placental Delivery Description: Spontaneous Delivery repair: Vicryl Procedure Done: Global Blood Loss: 800 Laceration: Perineal - 2nd Degree Episiotomy Description: None Blood Loss Measurement Type: EBL Bakri Used: No Sponge/Need Count Correct: Yes Cord Vessel Description: 3 Vessels Event Summary Status: Mother and infant were stable after delivery. Disposition: floor
[2024-04-07] MEDS: ACETAMINOPHEN 500 MG TABLET 1000 MG PO ×2 (14:18→19:48)
--- NOTE | 2024-04-07 15:23 | PM.ANPOST ---
Post Anesthesia Note Post Anesthesia Note Patient seen: Inpatient Respiratory Status: adequate Cardiovascular Status: adequate Mental Status: baseline Pain: adequate Temp: baseline Anesthetic awareness: N/A Complications: none Follow care: none
[2024-04-07] MEDS: IBUPROFEN 600 MG TABLET PO (18:27)
[2024-04-07] MEDS: DOCUSATE SODIUM 100 MG CAPSULE PO (19:52)
[2024-04-08 00:25] VITALS: BP 115/82; PULSE 83; RESP 17; TEMP 36.6
[2024-04-08] MEDS: IBUPROFEN 600 MG TABLET PO ×2 (00:26→07:46)
[2024-04-08] MEDS: ACETAMINOPHEN 500 MG TABLET 1000 MG PO (04:56)
[2024-04-08 05:03] VITALS: BP 126/82; PULSE 83; RESP 16; TEMP 36.5
[2024-04-08 06:47] LABS: Hemoglobin* 8.4 gm/dL (12.0-16.0)
[2024-04-08] MEDS: DOCUSATE SODIUM 100 MG CAPSULE PO (07:47)
[2024-04-08 07:48] VITALS: BP 123/83; PULSE 72; RESP 16; TEMP 36.4; O2SAT 99
--- NOTE | 2024-04-08 10:18 | PM.OBDSVD1 ---
DS: Providers Provider Date Seen: 04/08/24 Date of admission: 04/06/24 18:22 Primary care physician: Lacy Gomez MD Admitting Clinician: Lacy Gomez MD Attending Physician on discharge: Lacy Gomez MD DS: Diagnosis Discharge Diagnosis (1) Vaginal delivery: Status: Acute (2) anemia: Status: Acute Problem details: PP hgb 8.4. Patient asymptomatic. Exam Narrative: Exam Narrative: Gen: No acute distress CV: Regular rate and rhythm, normal S1,S2, no murmurs Resp: Normal rate and effort, clear to auscultation bilaterally Abd: Soft Ext: Warm, dry, 2+ pedal pulses, no edema bilaterally. Calves non-tender to palpation. Const: Vital Signs, click to edit/add: Vital Signs - 24 hr 04/07/24 10:29 04/07/24 10:34 04/07/24 10:36 Temperature 98.3 F Pulse Rate 117 H 179 H Pulse Rate [Pulse Oximeter] Respiratory Rate Blood Pressure 147/72 H 139/66 Blood Pressure [Le ft Arm] Pulse Oximetry Oxygen Delivery Ma thod 04/07/24 10:44 04/07/24 10:59 04/07/24 11:14 Temperature Pulse Rate 96 90 83 Pulse Rate [Pulse Oximeter] Respiratory Rate Blood Pressure 126/59 L 140/63 H 129/59 L Blood Pressure [Le ft Arm] Pulse Oximetry Oxygen Delivery Ma thod 04/07/24 11:28 04/07/24 11:43 04/07/24 11:59 Temperature Pulse Rate 101 H 92 93 Pulse Rate [Pulse Oximeter] Respiratory Rate Blood Pressure 120/58 L 117/56 L 125/60 Blood Pressure [Le ft Arm] Pulse Oximetry Oxygen Delivery Me thod 04/07/24 12:13 04/07/24 12:28 04/07/24 16:15 Temperature 98.3 F Pulse Rate 91 88 Pulse Rate [Pulse Oximeter] 83 Respiratory Rate 16 Blood Pressure 121/60 121/61 Blood Pressure [Le ft Arm] 116/69 Pulse Oximetry [facility] 04/07/24 19:44 04/08/24 00:25 04/08/24 05:03 Temperature 98.3 F 97.8 F 97.7 F Pulse Rate Pulse Rate [Pulse Oximeter] 83 83 83 Respiratory Rate 17 16 Blood Pressure Blood Pressure [Le ft Arm] 109/74 115/82 126/82 Pulse Oximetry Oxygen Delivery Me thod Room Air Room Air 04/08/24 07:48 Temperature 97.6 F Pulse Rate Pulse Rate [Pulse Oximeter] 72 Respiratory Rate 16 Blood Pressure Blood Pressure [Le ft Arm] 123/83 Pulse Oximetry 99 Oxygen Delivery Me thod Room Air OB - DS: Summary Hospital Course Hospital Course: The patient is a 23 year old G 2 P 2 at 39.5 weeks gestation that was admitted to the [facility] on 04/06/24 for elective IOL. complicated by maternal obesity with pre- BMI of 39 and short interpregnancy interval. She had an uncomplicated vaginal delivery. She delivered a viable female . She is . the patient has done well. She does have history of hemorrhage with anemia (hb 8.4 on HD #1). [place] Infant Gender: Female Status at Discharge Functional status at discharge: independent ambulation Overall status at discharge: patient is progressing back to baseline Time Spent with Patient Time attestation: Total time spent providing and/or coordinating discharge services: Discharge Plan Discharge Disposition: Home, Self-Care Date of Admission: 04/06/24 18:22 Primary Care Provider: Lacy Gomez I Condition: Stable Anticipated Discharge Date/Time: 04/08/24 10:22 Discharge Medications: Continued ascorbic acid (vitamin C) 250 mg tablet 250 mg PO Q1D Hold Instructions: no longer taking ferrous sulfate [FeroSul] 325 mg (65 mg iron) tablet 325 mg PO Q1D 28-800 mg-mcg tablet 1 tab PO DAILY acetaminophen 500 mg Tablet 1,000 mg PO Q6H PRNQty: 30 0RF Discharge Orders: Discharge Order (Routine); Ordered 04/08/24 Ordered By: Amparo Pena Patient Education: OB [place] [facility], OB Vaginal/Breast Feeding Follow Up Appointments: Lacy Gomez MD [Primary Care Provider] - Forms: MyHealth Info Instructions DS:Data Additional Comments Additional comments: - Pelvic rest for 6 weeks (no intercourse, tampons or douching), or until one week after vaginal bleeding stops. - Daily activities for the first week should be limited to taking care of patient and her baby, and only as tolerated. - Call MD if fever > 100.4 degrees, bleeding more than 1 pad / hour, foul-smelling discharge, passage of golf-ball sized blood clots, or worsening of pain not controlled by medications. - Counseled on signs of post- depression
[2024-04-08 23:23] LABS: Rapid Plasma Reagin (RPR) Non Reactive (Non Reactive)
== END 2024-04-08 12:00 | disposition home or self-care (01) | DRG 560 ==
LOC: OB OUT 18:23 → OB 18:23
PROVIDERS: Admitting Provider Family Medicine; PCP Family Medicine; Visit Provider Family Medicine
DX: O99.02 Anemia complicating childbirth (principal); D64.9 Anemia, unspecified; O70.1 Second degree perineal laceration during delivery; O99.214 Obesity complicating childbirth; E66.9 Obesity, unspecified; Z37.0 Single live birth; Z3A.39 39 weeks gestation of pregnancy
CPT/HCPCS: 01967; 36415; 59200; 85018; 85025; 86592; 86850; 86900; 86901; G0463; A9270; J2795; J7120